=== PATIENT | male | born 1950 | race Caucasian/White ===

== ENCOUNTER 2018-04-28 16:19 | Emergency (ER) | payer OTHER ==
[~2018-04-28] VITALS: Ht 182.9 cm; Wt 90.7 kg
--- NOTE | 2018-04-28 19:08 | Diagnostic Imaging Report ---
RIGHT KNEE X-RAY - 3 VIEWS HISTORY: ^[id number] ^[id number] COMPARISON: None available. FINDINGS: Bones: No acute displaced fracture. Osseous alignment is within normal limits. Joints: Moderate tricompartmental degenerative changes. Soft tissues: The soft tissues appear unremarkable. IMPRESSION: No acute radiographic abnormality. Signed by: Dr. Cathi Doherty M.D. on 04/28/2018 7:05 PM
== END 2018-04-28 19:02 | disposition home or self-care (01) ==
LOC: FSED 16:19
DX: M25.561 Pain in right knee (principal); M17.11 Unilateral primary osteoarthritis, right knee
CPT/HCPCS: 99283